=== PATIENT | female | born 1970 | race African-American/Black ===

== ENCOUNTER 2017-01-01 13:50 | Emergency (ER) | payer MEDICAID ==
[~2017-01-01] VITALS: Ht 170.2 cm; Wt 77.0 kg
[~2017-01-01 13:50] MED LIST: CA C1TAB95 PO; LEVO100 PO
[2017-01-01] MEDS ORDERED: OxyCODONE HCL/ACETAMINOPHEN 5-325 MG TABLET PO ONE (16:00)
[2017-01-01] MEDS ORDERED: IBUPROFEN 800 MG TABLET PO ONE (16:00)
[2017-01-01 16:22] VITALS: BP 121/70
== END 2017-01-01 16:25 | disposition home or self-care (01) ==
LOC: EMS 13:51
DX: J32.9 Chronic sinusitis, unspecified (principal); E03.9 Hypothyroidism, unspecified
CPT/HCPCS: 99283

== ENCOUNTER 2017-03-02 13:00 | Emergency (ER) | payer SELFPAY ==
[~2017-03-02] VITALS: Ht 170.2 cm; Wt 74.0 kg
[2017-03-02] MEDS ORDERED: HYDROCODONE/ACETAMINOPHEN 10-325 MG TABLET PO ONE (14:15)
[2017-03-02] MEDS ORDERED: IBUPROFEN 800 MG TABLET PO ONE (14:15)
[2017-03-02 16:23] VITALS: BP 113/73
== END 2017-03-02 16:25 | disposition home or self-care (01) ==
LOC: EMS 13:02
DX: S83.91XA Sprain of unspecified site of right knee, initial encounter (principal); S93.401A Sprain of unspecified ligament of right ankle, initial encounter; S63.91XA Sprain of unspecified part of right wrist and hand, initial encounter; S53.402A Unspecified sprain of left elbow, initial encounter; E03.9 Hypothyroidism, unspecified; V00.131A Fall from skateboard, initial encounter; Y93.51 Activity, roller skating (inline) and skateboarding; Y92.89 Other specified places as the place of occurrence of the external cause; Y99.8 Other external cause status
CPT/HCPCS: 99284

== ENCOUNTER 2018-02-26 12:29 | Emergency (ER) | payer MEDICAID ==
[~2018-02-26] VITALS: Ht 170.2 cm; Wt 79.1 kg
[2018-02-26 12:46] VITALS: BP 148/97
[2018-02-26] MEDS ORDERED: IBUPROFEN 600 MG TABLET PO ONE (13:00)
== END 2018-02-26 13:54 | disposition home or self-care (01) ==
LOC: EMS 12:30
DX: G56.01 Carpal tunnel syndrome, right upper limb (principal); E03.9 Hypothyroidism, unspecified; G89.29 Other chronic pain
CPT/HCPCS: 99284

== ENCOUNTER 2018-04-10 14:15 | Emergency (ER) | payer MEDICAID ==
[~2018-04-10] VITALS: Ht 170.2 cm; Wt 78.6 kg
[2018-04-10] MEDS ORDERED: KETOROLAC TROMETHAMINE 10 MG TABLET PO ONE (15:30)
[2018-04-10 17:39] VITALS: BP 125/73
== END 2018-04-10 17:41 | disposition home or self-care (01) ==
LOC: EMS 14:16
DX: L60.0 Ingrowing nail (principal); B35.1 Tinea unguium; E03.9 Hypothyroidism, unspecified
CPT/HCPCS: 84550; 99285

== ENCOUNTER 2018-05-01 08:37 | Emergency (ER) | payer SELFPAY ==
[~2018-05-01] VITALS: Ht 170.2 cm; Wt 77.0 kg
[2018-05-01] MEDS ORDERED: ONDANSETRON HCL 4 MG/2 ML VIAL IVP ONE (09:15)
[2018-05-01] MEDS ORDERED: KETOROLAC TROMETHAMINE 30 MG/ML VIAL IVP ONE (09:15)
[2018-05-01] MEDS ORDERED: MORPHINE SULFATE 4 MG/ML SYRINGE IVP ONE (09:15)
[2018-05-01 09:35] LABS: BASOPHILS % (AUTO) 0.6 % (0.0-2.0); EOSINOPHILS % (AUTO) 1.7 % (1.0-6.0); HEMATOCRIT 42.7 % (36-46); HEMOGLOBIN 14.7 g/dL (12.0-16.0); LYMPHOCYTES # (AUTO) 2.1 K/uL (1.0-4.8); LYMPHOCYTES % (AUTO) 22.3 % (22.0-44.0); MEAN CORPUSCULAR HEMOGLOBIN 31.2 pg (26.0-34.0); MEAN CORPUSCULAR HGB CONC 34.5 G/dL (31.0-37.0); MEAN CORPUSCULAR VOLUME 91 fL (80-100); MONOCYTES # (AUTO) 0.5 K/uL (0.1-1.0); MONOCYTES % (AUTO) 5.3 % (2.0-9.0); NEUTROPHILS # (AUTO) 6.7 K/uL (1.8-7.7); NEUTROPHILS % (AUTO) 70.1 % (40.0-70.0); PLATELET COUNT (AUTO) 174 K/uL (150-450); RED BLOOD CELL COUNT(AUTO) 4.72 MIL/uL (4.00-5.20)
[2018-05-01 09:39] LABS: ANION GAP 11 mmol/L (8-16); CALCIUM, TOTAL 8.6 mg/dL (8.8-10.5); CARBON DIOXIDE 23 mmol/L (22-29); CHLORIDE 104 mmol/L (98-107); CREATININE 0.84 mg/dL (0.60-1.30); GLOMERULAR FILTR. RATE CALC > 60 mL/min (>60); GLUCOSE,RANDOM 97 mg/dL (70-110); POTASSIUM 4.3 mmol/L (3.5-5.1); SODIUM SERUM 138 mmol/L (136-145); UREA NITROGEN, BLOOD 10 mg/dL (7-18)
[2018-05-01 09:46] LABS: ALANINE AMINOTRANSFERASE 40 U/L (12-78); ALBUMIN 3.9 g/dL (3.4-5.0); ALKALINE PHOSPHATASE 58 U/L (46-116); ASPARTATE AMINOTRANSFERASE 20 U/L (15-37); BILIRUBIN,TOTAL 0.3 mg/dL (0.1-1.0); TOTAL PROTEIN, SERUM 7.4 g/dL (6.4-8.2)
[2018-05-01 10:08] VITALS: BP 102/58
== END 2018-05-01 10:26 | disposition home or self-care (01) ==
LOC: EMS 08:38
DX: M94.0 Chondrocostal junction syndrome [Tietze] (principal); M54.2 Cervicalgia; G89.29 Other chronic pain; M54.9 Dorsalgia, unspecified; E03.9 Hypothyroidism, unspecified; Z79.899 Other long term (current) drug therapy
CPT/HCPCS: 36415; 71045; 80053; 84484; 85025; 93005; 96374; 96375; 99285; J1885; J2270; J2405

== ENCOUNTER 2018-09-23 08:58 | Emergency (ER) | payer SELFPAY ==
[~2018-09-23] VITALS: Ht 170.2 cm; Wt 83.2 kg
[2018-09-23] MEDS ORDERED: PHEN-779 PEG (09:05)
[2018-09-23 12:02] LABS: INFLUENZA TYPE A NEGATIVE FOR TYPE A (NEGATIVE); INFLUENZA TYPE B NEGATIVE FOR TYPE B (NEGATIVE)
[2018-09-23 13:17] VITALS: BP 114/78
== END 2018-09-23 13:18 | disposition home or self-care (01) ==
LOC: EMS 09:00
DX: J06.9 Acute upper respiratory infection, unspecified (principal); R03.0 Elevated blood-pressure reading, without diagnosis of hypertension; E03.9 Hypothyroidism, unspecified; F17.210 Nicotine dependence, cigarettes, uncomplicated
CPT/HCPCS: 87804

== ENCOUNTER 2018-12-04 04:29 | Emergency (ER) | payer SELFPAY ==
[~2018-12-04] VITALS: Ht 167.6 cm; Wt 83.2 kg
[~2018-12-04 04:29] MED LIST changes: +PHEN-779 PEG
[2018-12-04 05:45] LABS: BASOPHILS % (AUTO) 0.7 % (0.0-2.0); EOSINOPHILS % (AUTO) 1.8 % (1.0-6.0); HEMATOCRIT 40.8 % (36-46); HEMOGLOBIN 14.1 g/dL (12.0-16.0); LYMPHOCYTES # (AUTO) 2.6 K/uL (1.0-4.8); LYMPHOCYTES % (AUTO) 27.9 % (22.0-44.0); MEAN CORPUSCULAR HEMOGLOBIN 31.7 pg (26.0-34.0); MEAN CORPUSCULAR HGB CONC 34.5 G/dL (31.0-37.0); MEAN CORPUSCULAR VOLUME 92 fL (80-100); MONOCYTES # (AUTO) 0.6 K/uL (0.1-1.0); MONOCYTES % (AUTO) 6.9 % (2.0-9.0); NEUTROPHILS # (AUTO) 5.7 K/uL (1.8-7.7); NEUTROPHILS % (AUTO) 62.7 % (40.0-70.0); PLATELET COUNT (AUTO) 166 K/uL (150-450); RED BLOOD CELL COUNT(AUTO) 4.44 MIL/uL (4.00-5.20); RED CELL DISTRIBUTION WIDTH 14.1 % (11.5-14.5)
[2018-12-04 05:57] LABS: ANION GAP 9 mmol/L (8-16); CALCIUM, TOTAL 8.7 mg/dL (8.8-10.5); CARBON DIOXIDE 26 mmol/L (22-29); CHLORIDE 105 mmol/L (98-107); CREATININE 0.72 mg/dL (0.60-1.30); GLOMERULAR FILTR. RATE CALC > 60 mL/min (>60); GLUCOSE,RANDOM 106 mg/dL (70-110); POTASSIUM 3.9 mmol/L (3.5-5.1); SODIUM SERUM 140 mmol/L (136-145); UREA NITROGEN, BLOOD 11 mg/dL (7-18)
[2018-12-04 06:02] LABS: ALANINE AMINOTRANSFERASE 33 U/L (12-78); ALBUMIN 3.6 g/dL (3.4-5.0); ALKALINE PHOSPHATASE 61 U/L (46-116); ASPARTATE AMINOTRANSFERASE 8 U/L (15-37); BILIRUBIN,TOTAL 0.2 mg/dL (0.1-1.0); LIPASE 177 U/L (73-393); TOTAL PROTEIN, SERUM 6.7 g/dL (6.4-8.2)
[2018-12-04] MEDS ORDERED: MAG HYDROX/AL HYDROX/SIMETH ES 30 ML SUSPENSION UDCUP PO ONE (06:30)
[2018-12-04] MEDS ORDERED: FAMOTIDINE 20 MG TABLET PO ONE (06:30)
[2018-12-04 10:04] VITALS: BP 118/76
== END 2018-12-04 10:06 | disposition home or self-care (01) ==
LOC: EMS 04:29
DX: K21.0 Gastro-esophageal reflux disease with esophagitis (principal); K27.9 Peptic ulcer, site unspecified, unspecified as acute or chronic, without hemorrhage or perforation; E03.9 Hypothyroidism, unspecified; F17.210 Nicotine dependence, cigarettes, uncomplicated; Z79.899 Other long term (current) drug therapy
CPT/HCPCS: 93005

== ENCOUNTER 2019-01-09 10:56 | Emergency (ER) | payer MEDICAID ==
[~2019-01-09] VITALS: Ht 170.2 cm; Wt 81.8 kg
[~2019-01-09 10:56] MED LIST changes: -PHEN-779 PEG
[2019-01-09 11:13] VITALS: BP 128/74
[2019-01-09] MEDS ORDERED: CYCLOBENZAPRINE HCL 10 MG TABLET PO ONE (15:00)
[2019-01-09] MEDS ORDERED: HYDROCODONE/ACETAMINOPHEN 5-325 MG TABLET PO ONE (15:00)
[2019-01-09] MEDS ORDERED: KETOROLAC TROMETHAMINE 30 MG/ML VIAL IM ONE (15:00)
[2019-01-09] MEDS ORDERED: LIDOCAINE 5% TRANSDERMAL PATCH TD ONE (15:00)
[2019-01-09 15:14] LABS: APPEARANCE,URINE CLOUDY (CLEAR); BILIRUBIN,URINE NEGATIVE (NEGATIVE); GLUCOSE, URINE (UA) NEGATIVE (NEGATIVE); KETONES,URINE NEGATIVE (NEGATIVE); LEUKOCYTE ESTERASE ,URINE LARGE (NEGATIVE); NITRATE,URINE NEGATIVE (NEGATIVE); OCCULT BLOOD,URINE LARGE (NEGATIVE); PH,URINE 5.5 (5.0-8.0); PROTEIN,URINE NEGATIVE (NEGATIVE); UROBILINOGEN,URINE 0.2 mg/dL (<=1.0)
[2019-01-09 15:35] LABS: BACTERIA,URINE Few /HPF (None Seen); RBC,URINE 26-50 /HPF (0-2); SQUAMOUS EPITHELIAL CELL,UR Many /LPF (None Seen); WBC,URINE 51-100 /HPF (0-5)
[2019-01-09] MEDS ORDERED: MetroNIDAZOLE 500 MG TABLET PO ONE (16:15)
[2019-01-09] MEDS ORDERED: CefTRIAXone SODIUM 1 GM/VIAL IM ONE (16:15)
[2019-01-09] MEDS ORDERED: LIDOCAINE/PF 1% 2 ML VIAL IM ONE (16:15)
== END 2019-01-09 17:39 | disposition home or self-care (01) ==
LOC: EMS 10:57
DX: N39.0 Urinary tract infection, site not specified (principal); A59.9 Trichomoniasis, unspecified; G89.29 Other chronic pain; E03.9 Hypothyroidism, unspecified; F17.210 Nicotine dependence, cigarettes, uncomplicated
CPT/HCPCS: 81001; 81002; 81025; 87086; 96372; 99284; 99406; J0696; J1885; J3490

== ENCOUNTER 2019-01-12 00:57 | Emergency (ER) | payer MEDICAID ==
[~2019-01-12] VITALS: Ht 170.2 cm; Wt 81.8 kg
[2019-01-12] MEDS ORDERED: CYCL10 PO (01:25)
[2019-01-12] MEDS ORDERED: LEVO500 PO (01:25)
[2019-01-12 02:37] LABS: BASOPHILS % (AUTO) 0.5 % (0.0-2.0); EOSINOPHILS % (AUTO) 2.3 % (1.0-6.0); HEMATOCRIT 38.3 % (36-46); HEMOGLOBIN 13.1 g/dL (12.0-16.0); LYMPHOCYTES # (AUTO) 2.1 K/uL (1.0-4.8); LYMPHOCYTES % (AUTO) 24.5 % (22.0-44.0); MEAN CORPUSCULAR HEMOGLOBIN 31.2 pg (26.0-34.0); MEAN CORPUSCULAR HGB CONC 34.2 G/dL (31.0-37.0); MEAN CORPUSCULAR VOLUME 91 fL (80-100); MONOCYTES # (AUTO) 0.6 K/uL (0.1-1.0); MONOCYTES % (AUTO) 6.4 % (2.0-9.0); NEUTROPHILS # (AUTO) 5.7 K/uL (1.8-7.7); NEUTROPHILS % (AUTO) 66.3 % (40.0-70.0); PLATELET COUNT (AUTO) 172 K/uL (150-450)
[2019-01-12 02:46] LABS: AMPHET/METH SCREEN,URINE NEGATIVE (NEGATIVE); BARBITURATE SCREEN, URINE NEGATIVE (NEGATIVE); BENZODIAZEPINES SCREEN,URINE NEGATIVE (NEGATIVE); CANNABINOID SCREEN,URINE NEGATIVE (NEGATIVE); COCAINE SCREEN,URINE NEGATIVE (NEGATIVE); METHADONE SCREEN, URINE NEGATIVE (NEGATIVE); OPIATE SCREEN,URINE POSITIVE (NEGATIVE)
[2019-01-12 02:47] LABS: ANION GAP 7 mmol/L (8-16); CALCIUM, TOTAL 8.7 mg/dL (8.8-10.5); CARBON DIOXIDE 26 mmol/L (22-29); CHLORIDE 104 mmol/L (98-107); CREATININE 0.95 mg/dL (0.60-1.30); GLOMERULAR FILTR. RATE CALC > 60 mL/min (>60); GLUCOSE,RANDOM 118 mg/dL (70-110); POTASSIUM 4.1 mmol/L (3.5-5.1); SODIUM SERUM 137 mmol/L (136-145); UREA NITROGEN, BLOOD 11 mg/dL (7-18)
[2019-01-12 02:48] LABS: PHENCYCLIDINE SCREEN,URINE NEGATIVE (NEGATIVE)
[2019-01-12 02:59] LABS: ALANINE AMINOTRANSFERASE 24 U/L (12-78); ALBUMIN 3.6 g/dL (3.4-5.0); ALKALINE PHOSPHATASE 58 U/L (46-116); ASPARTATE AMINOTRANSFERASE 6 U/L (15-37); BILIRUBIN,TOTAL 0.1 mg/dL (0.1-1.0); HCG,QUANTITATIVE < 1 mIU/mL (0-6); TOTAL PROTEIN, SERUM 6.9 g/dL (6.4-8.2)
[2019-01-12 04:59] VITALS: BP 127/71
== END 2019-01-12 05:01 | disposition home or self-care (01) ==
LOC: EMS 00:57
DX: F41.9 Anxiety disorder, unspecified (principal); D64.9 Anemia, unspecified; E03.9 Hypothyroidism, unspecified; F17.210 Nicotine dependence, cigarettes, uncomplicated; Z79.899 Other long term (current) drug therapy
CPT/HCPCS: 36415; 80053; 80307; 84484; 84702; 85025; 93005; 99284; 99406; G0480

== ENCOUNTER 2019-05-07 23:29 | Emergency (ER) | payer MEDICAID, OTHER ==
[~2019-05-07] VITALS: Ht 170.2 cm; Wt 72.7 kg
[~2019-05-07 23:29] MED LIST changes: +CYCL10 PO; +LEVO500 PO
[2019-05-08] MEDS ORDERED: LIDOCAINE 5% TRANSDERMAL PATCH TD ONE (02:15)
[2019-05-08] MEDS ORDERED: KETOROLAC TROMETHAMINE 30 MG/ML VIAL IM ONE (03:00)
[2019-05-08 04:40] VITALS: BP 137/93
== END 2019-05-08 04:49 | disposition home or self-care (01) ==
LOC: EMS 23:30
DX: N39.0 Urinary tract infection, site not specified (principal); E03.9 Hypothyroidism, unspecified; G89.29 Other chronic pain; F17.210 Nicotine dependence, cigarettes, uncomplicated
CPT/HCPCS: 81002; 81025; 96372; 99284; J1885

== ENCOUNTER 2019-06-20 01:00 | Emergency (ER) | payer OTHER ==
[~2019-06-20] VITALS: Ht 170.2 cm; Wt 75.0 kg
[~2019-06-20 01:00] MED LIST changes: -CYCL10 PO; -LEVO500 PO
[2019-06-20 01:04] VITALS: BP 128/85
== END 2019-06-20 05:12 | disposition left against medical advice (07) ==
LOC: EMS 01:02
DX: S81.812A Laceration without foreign body, left lower leg, initial encounter (principal); E03.9 Hypothyroidism, unspecified; F17.210 Nicotine dependence, cigarettes, uncomplicated; G89.29 Other chronic pain; Z53.21 Procedure and treatment not carried out due to patient leaving prior to being seen by health care provider; W45.8XXA Other foreign body or object entering through skin, initial encounter; Y93.89 Activity, other specified; Y92.89 Other specified places as the place of occurrence of the external cause; Y99.8 Other external cause status

== ENCOUNTER 2019-07-08 09:19 | Emergency (ER) | payer OTHER ==
[~2019-07-08] VITALS: Ht 171.4 cm; Wt 75.0 kg
[2019-07-08] MEDS: HYDROCODONE/ACETAMINOPHEN 5-325 MG TABLET PO ONE (10:12)
[2019-07-08] MEDS: KETOROLAC TROMETHAMINE 60 MG/2 ML VIAL IM ONE (10:13)
[2019-07-08 11:34] VITALS: BP 120/74
== END 2019-07-08 11:55 | disposition home or self-care (01) ==
LOC: EMS 09:20
DX: S93.601A Unspecified sprain of right foot, initial encounter (principal); F17.210 Nicotine dependence, cigarettes, uncomplicated; E03.9 Hypothyroidism, unspecified; G89.29 Other chronic pain; X58.XXXA Exposure to other specified factors, initial encounter; Y93.89 Activity, other specified; Y92.89 Other specified places as the place of occurrence of the external cause; Y99.8 Other external cause status
CPT/HCPCS: 73630; 96372; 99283; 99406; J1885

== ENCOUNTER 2020-01-05 15:02 | Emergency (ER) | payer MEDICAID, OTHER ==
[~2020-01-05] VITALS: Ht 170.2 cm; Wt 86.4 kg
[2020-01-05] MEDS ORDERED: ALBUTEROL SULFATE HFA 90 MCG/PUFF 8 GM INHALER IH ONE (16:15)
[2020-01-05 17:13] VITALS: BP 134/81
== END 2020-01-05 17:21 | disposition home or self-care (01) ==
LOC: EMS 15:03
DX: J40 Bronchitis, not specified as acute or chronic (principal); R03.0 Elevated blood-pressure reading, without diagnosis of hypertension; E03.9 Hypothyroidism, unspecified; G89.29 Other chronic pain; F17.210 Nicotine dependence, cigarettes, uncomplicated; Z98.890 Other specified postprocedural states; Z79.899 Other long term (current) drug therapy
CPT/HCPCS: 94640; J3535

== ENCOUNTER 2020-08-30 23:55 | Emergency (ER) | payer SELFPAY ==
[~2020-08-30] VITALS: Ht 170.2 cm; Wt 86.4 kg
[2020-08-31] MEDS ORDERED: KETOROLAC TROMETHAMINE 60 MG/2 ML VIAL IM ONE (02:30)
[2020-08-31] MEDS ORDERED: METHOCARBAMOL 500 MG TABLET PO ONE (02:30)
[2020-08-31 03:10] LABS: BASOPHILS % (AUTO) 0.5 % (0.0-2.0); EOSINOPHILS % (AUTO) 2.6 % (1.0-6.0); HEMATOCRIT 39.9 % (36-46); HEMOGLOBIN 13.6 g/dL (12.0-16.0); LYMPHOCYTES % (AUTO) 34.5 % (22.0-44.0); MEAN CORPUSCULAR HEMOGLOBIN 31.3 pg (26.0-34.0); MEAN CORPUSCULAR VOLUME 92 fL (80-100); MONOCYTES # (AUTO) 0.6 K/uL (0.1-1.0); MONOCYTES % (AUTO) 6.8 % (2.0-9.0); NEUTROPHILS # (AUTO) 4.9 K/uL (1.8-7.7); NEUTROPHILS % (AUTO) 55.6 % (40.0-70.0); PLATELET COUNT (AUTO) 191 K/uL (150-450); RED BLOOD CELL COUNT(AUTO) 4.33 MIL/uL (4.00-5.20); RED CELL DISTRIBUTION WIDTH 14.2 % (11.5-14.5)
[2020-08-31 03:24] LABS: ANION GAP 11 mmol/L (8-16); CALCIUM, TOTAL 9.3 mg/dL (8.8-10.5); CARBON DIOXIDE 24 mmol/L (22-29); CHLORIDE 104 mmol/L (98-107); CREATININE 0.93 mg/dL (0.60-1.30); GLOMERULAR FILTR. RATE CALC > 60 mL/min (>60); GLUCOSE,RANDOM 109 mg/dL (70-110); POTASSIUM 3.9 mmol/L (3.5-5.1); SODIUM SERUM 139 mmol/L (136-145); UREA NITROGEN, BLOOD 11 mg/dL (7-18)
[2020-08-31 03:31] LABS: ALANINE AMINOTRANSFERASE 44 U/L (12-78); ALBUMIN 3.9 g/dL (3.4-5.0); ALKALINE PHOSPHATASE 65 U/L (46-116); ASPARTATE AMINOTRANSFERASE 10 U/L (15-37); BILIRUBIN,TOTAL 0.1 mg/dL (0.1-1.0); LIPASE 163 U/L (73-393); TOTAL PROTEIN, SERUM 6.6 g/dL (6.4-8.2)
[2020-08-31 04:04] VITALS: BP 114/70
== END 2020-08-31 04:06 | disposition home or self-care (01) ==
LOC: EMS 23:55
DX: R07.89 Other chest pain (principal); F17.210 Nicotine dependence, cigarettes, uncomplicated; E03.9 Hypothyroidism, unspecified
CPT/HCPCS: 36415; 71100; 80053; 83690; 84484; 85025; 93005; 96372; 99285; J1885

== ENCOUNTER 2021-02-21 09:05 | Emergency (ER) | payer MEDICAID ==
[~2021-02-21] VITALS: Ht 170.2 cm; Wt 84.1 kg
[2021-02-21] MEDS ORDERED: KETOROLAC TROMETHAMINE 60 MG/2 ML VIAL IM ONE (11:00)
[2021-02-21] MEDS ORDERED: LIDOCAINE 5% TRANSDERMAL PATCH TD ONE (11:00)
[2021-02-21 11:44] VITALS: BP 143/77
== END 2021-02-21 11:49 | disposition home or self-care (01) ==
LOC: EMS 09:09
DX: G89.29 Other chronic pain (principal); M54.42 Lumbago with sciatica, left side; E03.9 Hypothyroidism, unspecified; F17.210 Nicotine dependence, cigarettes, uncomplicated; Z79.899 Other long term (current) drug therapy
CPT/HCPCS: 96372; 99283; J1885

== ENCOUNTER 2021-06-19 00:32 | Emergency (ER) | payer MEDICAID ==
[~2021-06-19] VITALS: Ht 170.2 cm; Wt 84.5 kg
[2021-06-19 00:48] VITALS: BP 113/71
== END 2021-06-19 04:25 | disposition left against medical advice (07) ==
LOC: EMS 00:35
DX: M79.673 Pain in unspecified foot (principal); Z53.21 Procedure and treatment not carried out due to patient leaving prior to being seen by health care provider

== ENCOUNTER 2021-07-07 16:09 | Emergency (ER) | payer MEDICAID ==
[~2021-07-07] VITALS: Ht 170.2 cm; Wt 86.4 kg
[2021-07-07 16:11] VITALS: BP 136/87
[2021-07-07] MEDS ORDERED: CEPHALEXIN MONOHYDRATE 500 MG CAPSULE PO ONE (17:30)
[2021-07-07] MEDS ORDERED: HYDROCODONE/ACETAMINOPHEN 5-325 MG TABLET PO ONE (17:30)
== END 2021-07-07 17:37 | disposition home or self-care (01) ==
LOC: EMS 16:09
DX: L03.031 Cellulitis of right toe (principal); F17.210 Nicotine dependence, cigarettes, uncomplicated; G89.29 Other chronic pain
CPT/HCPCS: 99283

== ENCOUNTER 2021-07-28 01:20 | Emergency (ER) | payer MEDICAID ==
[~2021-07-28] VITALS: Ht 170.2 cm; Wt 84.5 kg
[2021-07-28] MEDS ORDERED: ACETAMINOPHEN 325 MG TABLET PO ONE (01:45)
[2021-07-28] MEDS ORDERED: IBUPROFEN 400 MG TABLET PO ONE (02:00)
[2021-07-28] MEDS ORDERED: LIDOCAINE 1% 10 ML VIAL ID ONE (02:00)
[2021-07-28 02:31] VITALS: BP 135/74
== END 2021-07-28 02:30 | disposition home or self-care (01) ==
LOC: EMS 01:22
DX: S60.012A Contusion of left thumb without damage to nail, initial encounter (principal); W23.0XXA Caught, crushed, jammed, or pinched between moving objects, initial encounter; Y93.89 Activity, other specified; Y92.89 Other specified places as the place of occurrence of the external cause; Y99.8 Other external cause status
CPT/HCPCS: 11740; 73130; 99284; J3490

== ENCOUNTER 2021-10-13 00:18 | Emergency (ER) | payer MEDICAID ==
[~2021-10-13] VITALS: Ht 170.2 cm; Wt 84.1 kg
[2021-10-13 03:06] VITALS: BP 129/68
== END 2021-10-13 04:24 | disposition home or self-care (01) ==
LOC: EMS 00:21
DX: G89.29 Other chronic pain (principal); M79.645 Pain in left finger(s); E03.9 Hypothyroidism, unspecified; F17.210 Nicotine dependence, cigarettes, uncomplicated; Z79.899 Other long term (current) drug therapy
CPT/HCPCS: 99283

== ENCOUNTER 2021-11-08 06:18 | Emergency (ER) | payer MEDICAID ==
[~2021-11-08] VITALS: Ht 170.2 cm; Wt 81.8 kg
[2021-11-08 06:55] LABS: BASOPHILS % (AUTO) 0.6 % (0.0-2.0); EOSINOPHILS % (AUTO) 2.6 % (1.0-6.0); HEMOGLOBIN 14.3 g/dL (12.0-16.0); LYMPHOCYTES # (AUTO) 3.2 K/uL (1.0-4.8); LYMPHOCYTES % (AUTO) 36.2 % (22.0-44.0); MEAN CORPUSCULAR HEMOGLOBIN 31.4 pg (26.0-34.0); MEAN CORPUSCULAR HGB CONC 34.8 G/dL (31.0-37.0); MEAN CORPUSCULAR VOLUME 90 fL (80-100); MONOCYTES # (AUTO) 0.7 K/uL (0.1-1.0); MONOCYTES % (AUTO) 7.9 % (2.0-9.0); NEUTROPHILS # (AUTO) 4.7 K/uL (1.8-7.7); NEUTROPHILS % (AUTO) 52.7 % (40.0-70.0); PLATELET COUNT (AUTO) 180 K/uL (150-450); RED BLOOD CELL COUNT(AUTO) 4.55 MIL/uL (4.00-5.20); RED CELL DISTRIBUTION WIDTH 14.1 % (11.5-14.5)
[2021-11-08] MEDS ORDERED: PB/HYOSCY/ATR/SCOP/LIDO/MAALOX 55 ML BOTTLE PO ONE (07:00)
[2021-11-08 07:03] LABS: ANION GAP 8 mmol/L (8-16); CALCIUM, TOTAL 9.5 mg/dL (8.8-10.5); CARBON DIOXIDE 25 mmol/L (22-29); CHLORIDE 106 mmol/L (98-107); CREATININE 0.82 mg/dL (0.60-1.30); GLOMERULAR FILTR. RATE CALC > 60 mL/min (>60); GLUCOSE,RANDOM 122 mg/dL (70-110); POTASSIUM 4.1 mmol/L (3.5-5.1); SODIUM SERUM 139 mmol/L (136-145); UREA NITROGEN, BLOOD 11 mg/dL (7-18)
[2021-11-08 07:09] LABS: ALANINE AMINOTRANSFERASE 47 U/L (12-78); ALBUMIN 3.8 g/dL (3.4-5.0); ALKALINE PHOSPHATASE 61 U/L (46-116); ASPARTATE AMINOTRANSFERASE 19 U/L (15-37); BILIRUBIN,TOTAL 0.2 mg/dL (0.1-1.0); TOTAL PROTEIN, SERUM 7.2 g/dL (6.4-8.2)
[2021-11-08 12:45] VITALS: BP 125/80
== END 2021-11-08 13:11 | disposition home or self-care (01) ==
LOC: EMS 06:20
DX: R07.9 Chest pain, unspecified (principal); K21.9 Gastro-esophageal reflux disease without esophagitis; F17.210 Nicotine dependence, cigarettes, uncomplicated; E03.9 Hypothyroidism, unspecified; Z90.89 Acquired absence of other organs
CPT/HCPCS: 71045; 80053; 84484; 85025; 93005; 99285; 36415-L1; 36415-TC

== ENCOUNTER 2021-11-23 09:06 | Emergency (ER) | payer MEDICAID ==
[~2021-11-23] VITALS: Ht 170.2 cm; Wt 84.1 kg
[2021-11-23 09:14] VITALS: BP 143/88
[2021-11-23] MEDS ORDERED: ACETAMINOPHEN 500 MG TABLET PO ONE (10:00)
[2021-11-23 11:15] LABS: COVID AG,FIA SOURCE NASOPHARYNGEAL
== END 2021-11-23 10:52 | disposition home or self-care (01) ==
LOC: EMS 09:09
DX: U07.1 COVID-19 (principal); E03.9 Hypothyroidism, unspecified; F17.210 Nicotine dependence, cigarettes, uncomplicated; Z79.899 Other long term (current) drug therapy
CPT/HCPCS: 87426; 99283; C9803; U0003

== ENCOUNTER 2022-01-01 02:01 | Emergency (ER) | payer SELFPAY ==
[~2022-01-01] VITALS: Ht 170.2 cm; Wt 81.0 kg
[2022-01-01] MEDS ORDERED: IBUPROFEN 600 MG TABLET PO ONE (02:30)
[2022-01-01] MEDS ORDERED: ACETAMINOPHEN/CODEINE 300-30 MG TABLET PO ONE (02:30)
[2022-01-01] MEDS ORDERED: HYDR-4723 PO (03:01)
[2022-01-01] MEDS ORDERED: IBUP-1554 PO (03:01)
[2022-01-01 03:15] VITALS: BP 141/82
== END 2022-01-01 03:18 | disposition home or self-care (01) ==
LOC: EMS 02:03
DX: S63.501A Unspecified sprain of right wrist, initial encounter (principal); E03.9 Hypothyroidism, unspecified; Z79.899 Other long term (current) drug therapy; W18.39XA Other fall on same level, initial encounter; Y93.89 Activity, other specified; Y92.89 Other specified places as the place of occurrence of the external cause; Y99.8 Other external cause status
CPT/HCPCS: 29280; 99283

== ENCOUNTER 2022-02-11 22:49 | Emergency (ER) | payer SELFPAY ==
[~2022-02-11] VITALS: Ht 170.2 cm; Wt 86.4 kg
[~2022-02-11 22:49] MED LIST changes: +HYDR-4723 PO; +IBUP-1554 PO
[2022-02-12 00:35] LABS: APPEARANCE,URINE CLEAR (CLEAR); BILIRUBIN,URINE NEGATIVE (NEGATIVE); GLUCOSE, URINE (UA) NEGATIVE (NEGATIVE); KETONES,URINE NEGATIVE (NEGATIVE); LEUKOCYTE ESTERASE ,URINE MODERATE (NEGATIVE); NITRATE,URINE NEGATIVE (NEGATIVE); OCCULT BLOOD,URINE LARGE (NEGATIVE); PH,URINE 6.5 (5.0-8.0); PROTEIN,URINE TRACE mg/dL (NEGATIVE); SPECIFIC GRAVITIY, URINE 1.024 (1.003-1.030); UROBILINOGEN,URINE <=1.0 mg/dL (<=1.0)
[2022-02-12 00:53] LABS: BACTERIA,URINE Few /HPF (None Seen)
[2022-02-12 00:54] LABS: SQUAMOUS EPITHELIAL CELL,UR Few /LPF (None Seen)
[2022-02-12] MEDS ORDERED: TraMADol HCL 50 MG TABLET PO ONE (01:15)
[2022-02-12] MEDS ORDERED: LIDOCAINE 5% TRANSDERMAL PATCH TD ONE (01:15)
[2022-02-12] MEDS ORDERED: CEPH-558 PO (01:44)
[2022-02-12] MEDS ORDERED: METR500 PO (01:44)
[2022-02-12 02:17] VITALS: BP 130/75
== END 2022-02-12 02:19 | disposition home or self-care (01) ==
LOC: EMS 22:49
DX: G89.29 Other chronic pain (principal); M54.50 Low back pain, unspecified; N39.0 Urinary tract infection, site not specified; A59.9 Trichomoniasis, unspecified; E03.9 Hypothyroidism, unspecified; F17.210 Nicotine dependence, cigarettes, uncomplicated; Z79.899 Other long term (current) drug therapy
CPT/HCPCS: 81001; 87086; 99283

== ENCOUNTER 2022-03-27 04:00 | Emergency (ER) | payer SELFPAY ==
[~2022-03-27] VITALS: Ht 170.2 cm; Wt 86.4 kg
[~2022-03-27 04:00] MED LIST changes: +CEPH-558 PO; +METR500 PO
[2022-03-27 04:48] LABS: BASOPHILS % (AUTO) 0.3 % (0.0-2.0); EOSINOPHILS % (AUTO) 0.9 % (1.0-6.0); HEMATOCRIT 40.3 % (36-46); HEMOGLOBIN 13.8 g/dL (12.0-16.0); LYMPHOCYTES % (AUTO) 15.2 % (22.0-44.0); MEAN CORPUSCULAR HEMOGLOBIN 31.1 pg (26.0-34.0); MEAN CORPUSCULAR HGB CONC 34.2 G/dL (31.0-37.0); MEAN CORPUSCULAR VOLUME 91 fL (80-100); MONOCYTES # (AUTO) 0.9 K/uL (0.1-1.0); MONOCYTES % (AUTO) 6.7 % (2.0-9.0); NEUTROPHILS # (AUTO) 10.1 K/uL (1.8-7.7); NEUTROPHILS % (AUTO) 76.9 % (40.0-70.0); PLATELET COUNT (AUTO) 171 K/uL (150-450); RED BLOOD CELL COUNT(AUTO) 4.43 MIL/uL (4.00-5.20); RED CELL DISTRIBUTION WIDTH 14.2 % (11.5-14.5)
[2022-03-27 04:54] LABS: ANION GAP 11 mmol/L (8-16); CALCIUM, TOTAL 8.7 mg/dL (8.8-10.5); CARBON DIOXIDE 24 mmol/L (22-29); CHLORIDE 103 mmol/L (98-107); CREATININE 0.94 mg/dL (0.60-1.30); GLOMERULAR FILTR. RATE CALC > 60 mL/min (>60); GLUCOSE,RANDOM 136 mg/dL (70-110); POTASSIUM 3.9 mmol/L (3.5-5.1); SODIUM SERUM 138 mmol/L (136-145); UREA NITROGEN, BLOOD 12 mg/dL (7-18)
[2022-03-27 05:14] LABS: ALANINE AMINOTRANSFERASE 52 U/L (12-78); ALBUMIN 4.2 g/dL (3.4-5.0); ALKALINE PHOSPHATASE 63 U/L (46-116); AMYLASE 93 U/L (25-115); ASPARTATE AMINOTRANSFERASE 20 U/L (15-37); BILIRUBIN,TOTAL 0.3 mg/dL (0.1-1.0); HCG,QUANTITATIVE < 1 mIU/mL (0-6); LIPASE 125 U/L (73-393); TOTAL PROTEIN, SERUM 7.5 g/dL (6.4-8.2)
[2022-03-27] MEDS ORDERED: PB/HYOSCY/ATR/SCOP/LIDO/MAALOX 55 ML BOTTLE PO ONE (06:15)
[2022-03-27 07:00] LABS: APPEARANCE,URINE CLEAR (CLEAR); BILIRUBIN,URINE NEGATIVE (NEGATIVE); GLUCOSE, URINE (UA) NEGATIVE (NEGATIVE); KETONES,URINE NEGATIVE (NEGATIVE); LEUKOCYTE ESTERASE ,URINE NEGATIVE (NEGATIVE); NITRATE,URINE NEGATIVE (NEGATIVE); PH,URINE 5.5 (5.0-8.0); PROTEIN,URINE NEGATIVE (NEGATIVE); SPECIFIC GRAVITIY, URINE 1.007 (1.003-1.030); UROBILINOGEN,URINE <=1.0 mg/dL (<=1.0)
[2022-03-27 07:19] LABS: OCCULT BLOOD,URINE SMALL (NEGATIVE)
[2022-03-27 07:20] LABS: BACTERIA,URINE None Seen /HPF (None Seen); SQUAMOUS EPITHELIAL CELL,UR Rare /LPF (None Seen); WBC,URINE None Seen /HPF (0-5)
[2022-03-27 09:04] VITALS: BP 110/68
[2022-03-27] MEDS ORDERED: OMEP20 PO (09:07)
== END 2022-03-27 09:27 | disposition home or self-care (01) ==
LOC: EMS 04:00
DX: K29.70 Gastritis, unspecified, without bleeding (principal); F10.20 Alcohol dependence, uncomplicated; F17.210 Nicotine dependence, cigarettes, uncomplicated; G89.29 Other chronic pain; M54.9 Dorsalgia, unspecified; Z90.89 Acquired absence of other organs; Z98.890 Other specified postprocedural states
CPT/HCPCS: 80053; 81001; 82150; 83690; 84484; 84702; 85025; 93005; 99284

== ENCOUNTER 2022-06-28 16:13 | Emergency (ER) | payer SELFPAY ==
[~2022-06-28] VITALS: Ht 170.2 cm; Wt 86.4 kg
[~2022-06-28 16:13] MED LIST changes: -CEPH-558 PO; -HYDR-4723 PO; -IBUP-1554 PO; -METR500 PO; +OMEP20 PO
[2022-06-28 20:17] VITALS: BP 133/77
== END 2022-06-28 20:46 | disposition home or self-care (01) ==
LOC: EMS 16:15
DX: M25.561 Pain in right knee (principal); M25.562 Pain in left knee; M25.572 Pain in left ankle and joints of left foot; E03.9 Hypothyroidism, unspecified; F17.210 Nicotine dependence, cigarettes, uncomplicated; Z79.899 Other long term (current) drug therapy
CPT/HCPCS: 99284; 73562-TC; 73610-TC; Z7502

== ENCOUNTER 2023-06-16 10:57 | Emergency (ER) | payer OTHER ==
[~2023-06-16] VITALS: Ht 170.2 cm; Wt 75.0 kg
[~2023-06-16 10:57] MED LIST changes: +ATOR40TA71 PO; +FAMO20 PO; +HYDR-4396 PO; +METF-446 PO; -OMEP20 PO
[2023-06-16 11:07] VITALS: TEMP 97.9
[2023-06-16] MEDS ORDERED: METF-1211 PO (11:10)
[2023-06-16] MEDS ORDERED: AMOX1TAB16 PO (13:08)
[2023-06-16 13:49] VITALS: BP 125/78; PULSE 84; RESP 18
== END 2023-06-16 13:51 | disposition home or self-care (01) ==
LOC: EMS 10:58
DX: L60.0 Ingrowing nail (principal); F41.9 Anxiety disorder, unspecified; E11.9 Type 2 diabetes mellitus without complications; E78.00 Pure hypercholesterolemia, unspecified; E03.9 Hypothyroidism, unspecified; G89.29 Other chronic pain; M54.9 Dorsalgia, unspecified; F17.210 Nicotine dependence, cigarettes, uncomplicated; Z98.890 Other specified postprocedural states
CPT/HCPCS: 82962; 99283

== ENCOUNTER 2023-08-08 13:32 | Emergency (ER) | payer OTHER ==
[~2023-08-08] VITALS: Ht 170.2 cm; Wt 80.0 kg
[~2023-08-08 13:32] MED LIST changes: +AMOX1TAB16 PO; -ATOR40TA71 PO; -CA C1TAB95 PO; -FAMO20 PO; -HYDR-4396 PO; +METF-1211 PO; -METF-446 PO
[2023-08-08 13:35] VITALS: TEMP 99.3
[2023-08-08] MEDS ORDERED: ATOR20TA PO (13:41)
[2023-08-08 14:21] LABS: COVID AG,FIA SOURCE NASAL SWAB
[2023-08-08 14:41] LABS: SARS-COV2 (COVID) ANTIGEN,FIA Negative (Negative)
[2023-08-08 14:44] LABS: INFLUENZA TYPE A NEGATIVE FOR TYPE A (NEGATIVE); INFLUENZA TYPE B NEGATIVE FOR TYPE B (NEGATIVE)
[2023-08-08] MEDS ORDERED: CYCL10TA16 PO (16:40)
[2023-08-08] MEDS ORDERED: CALC-26 PO (16:40)
[2023-08-08] MEDS ORDERED: TERB250T90 PO (16:40)
[2023-08-08] MEDS ORDERED: ACETAMINOPHEN 500 MG TABLET PO ONE (16:45)
[2023-08-08] MEDS ORDERED: AMOX TR/POT CLAV 875 MG/125 MG TABLET PO ONE (16:45)
[2023-08-08] MEDS ORDERED: BENZONATATE 100 MG CAPSULE PO ONE (16:45)
[2023-08-08] MEDS ORDERED: BENZ-227 PO (16:59)
[2023-08-08] MEDS ORDERED: AMOX1TAB16 PO (16:59)
[2023-08-08 17:03] VITALS: BP 118/86; PULSE 66; RESP 16
== END 2023-08-08 17:59 | disposition home or self-care (01) ==
LOC: EMS 13:35
DX: J03.90 Acute tonsillitis, unspecified (principal); R05.9 Cough, unspecified; F41.9 Anxiety disorder, unspecified; E11.9 Type 2 diabetes mellitus without complications; E78.00 Pure hypercholesterolemia, unspecified; E03.9 Hypothyroidism, unspecified; G89.29 Other chronic pain; M54.9 Dorsalgia, unspecified; F17.210 Nicotine dependence, cigarettes, uncomplicated; Z98.890 Other specified postprocedural states; Z20.822 Contact with and (suspected) exposure to COVID-19
CPT/HCPCS: 71045; 82962; 87804; 99284

== ENCOUNTER 2023-08-26 06:39 | Inpatient (IN) | payer OTHER ==
[~2023-08-26] VITALS: Ht 170.2 cm; Wt 86.0 kg
[~2023-08-26 06:39] MED LIST changes: +ATOR20TA PO; +BENZ-227 PO; +CALC-26 PO; +CYCL10TA16 PO; +TERB250T90 PO
[2023-08-26 07:28] LABS: BASOPHILS % (AUTO) 0.6 % (0.0-2.0); EOSINOPHILS % (AUTO) 2.2 % (1.0-6.0); HEMOGLOBIN 13.5 g/dL (12.0-16.0); MEAN CORPUSCULAR HEMOGLOBIN 30.9 pg (26.0-34.0); MEAN CORPUSCULAR HGB CONC 33.7 G/dL (31.0-37.0); MEAN CORPUSCULAR VOLUME 92 fL (80-100); MONOCYTES # (AUTO) 0.6 K/uL (0.1-1.0); MONOCYTES % (AUTO) 6.5 % (2.0-9.0); NEUTROPHILS # (AUTO) 4.8 K/uL (1.8-7.7); NEUTROPHILS % (AUTO) 55.7 % (40.0-70.0); PLATELET COUNT (AUTO) 180 K/uL (150-450); RED BLOOD CELL COUNT(AUTO) 4.37 MIL/uL (4.00-5.20); RED CELL DISTRIBUTION WIDTH 14.4 % (11.5-14.5); WHITE BLOOD COUNT (AUTO) 8.7 K/uL (4.5-11.0)
[2023-08-26 07:38] LABS: ANION GAP 8 mmol/L (8-16); CALCIUM, TOTAL 8.4 mg/dL (8.8-10.5); CARBON DIOXIDE 24 mmol/L (22-29); CHLORIDE 104 mmol/L (98-107); CREATININE 0.84 mg/dL (0.60-1.30); GLOMERULAR FILTR. RATE CALC > 60 mL/min (>60); GLUCOSE,RANDOM 129 mg/dL (70-110); POTASSIUM 3.7 mmol/L (3.5-5.1); SODIUM SERUM 136 mmol/L (136-145); UREA NITROGEN, BLOOD 11 mg/dL (7-18)
[2023-08-26 07:44] LABS: ALANINE AMINOTRANSFERASE 59 U/L (12-78); ALBUMIN 3.6 g/dL (3.4-5.0); ALKALINE PHOSPHATASE 80 U/L (46-116); ASPARTATE AMINOTRANSFERASE 22 U/L (15-37); BILIRUBIN,TOTAL 0.2 mg/dL (0.1-1.0); TOTAL PROTEIN, SERUM 6.5 g/dL (6.4-8.2)
[2023-08-26] MEDS ORDERED: ASPIRIN 325 MG TABLET PO ONE (07:45)
[2023-08-26] MEDS ORDERED: NITROGLYCERIN 0.4 MG SUBLINGUAL TABLET #25 SL ONE (07:45)
[2023-08-26 07:49] LABS: TROPONIN I-HIGH SENSITIVITY 5 ng/L (<51)
[2023-08-26 11:10] LABS: TROPONIN I-HIGH SENSITIVITY 4 ng/L (<51)
[2023-08-26 13:16] LABS: COVID AG,FIA SOURCE NASAL SWAB
[2023-08-26 13:19] LABS: SARS-COV2 (COVID) ANTIGEN,FIA Negative (Negative)
[2023-08-26] MEDS ORDERED: ONDANSETRON HCL 4 MG/2 ML VIAL IVP PRN (15:15)
[2023-08-26] MEDS ORDERED: ACETAMINOPHEN 325 MG TABLET PO PRN (15:15)
[2023-08-26] MEDS ORDERED: BISACODYL 10 MG RECTAL RECTAL SUPPOSITORY PR PRN (15:15)
[2023-08-26] MEDS ORDERED: MAGNESIUM HYDROXIDE SUSPENSION 30 ML UDCUP PO PRN (15:15)
[2023-08-26] MEDS ORDERED: HYDROCODONE/ACETAMINOPHEN 5-325 MG TABLET PO PRN (15:15)
[2023-08-26] MEDS ORDERED: MORPHINE SULFATE 2 MG/ML SYRINGE IVP PRN (15:15)
[2023-08-26] MEDS ORDERED: ZOLPIDEM TARTRATE 5 MG TABLET PO PRN (15:15)
[2023-08-26] MEDS ORDERED: NITROGLYCERIN 0.4 MG SUBLINGUAL TABLET #25 SL PRN (15:15)
[2023-08-26 18:26] VITALS: BP 119/73; PULSE 69; RESP 18; TEMP 98
[2023-08-26] MEDS ORDERED: INFLUENZA VIRUS VACCINE QVS 2023-24 (6MO+)/PF 60 MCG/0.5 ML SYRINGE IM. ONE (18:30)
[2023-08-26] MEDS: HEPARIN SODIUM,PORCINE 5,000 UNITS/ML VIAL SQ SCH (18:34)
[2023-08-26 20:00] VITALS: BP 118/77; PULSE 69; RESP 20; TEMP 98.5
[2023-08-26] MEDS: DOCUSATE SODIUM 100 MG CAPSULE PO SCH (20:54)
[2023-08-26] MEDS ORDERED: ATORVASTATIN CALCIUM 20 MG TABLET PO SCH (21:00)
[2023-08-27] VITALS (7 sets, daily range): BP systolic 106–132; BP diastolic 64–82; PULSE 62–83; RESP 16–20; TEMP 97.2–98.3; O2SAT 100
[2023-08-27] MEDS ORDERED: LEVOTHYROXINE SODIUM 100 MCG TABLET PO SCH (06:30)
[2023-08-27 06:41] LABS: BASOPHILS % (AUTO) 0.5 % (0.0-2.0); EOSINOPHILS % (AUTO) 2.2 % (1.0-6.0); HEMATOCRIT 41.2 % (36-46); LYMPHOCYTES # (AUTO) 3.2 K/uL (1.0-4.8); LYMPHOCYTES % (AUTO) 37.7 % (22.0-44.0); MEAN CORPUSCULAR HEMOGLOBIN 31.1 pg (26.0-34.0); MEAN CORPUSCULAR VOLUME 92 fL (80-100); MONOCYTES # (AUTO) 0.5 K/uL (0.1-1.0); MONOCYTES % (AUTO) 5.8 % (2.0-9.0); NEUTROPHILS # (AUTO) 4.5 K/uL (1.8-7.7); NEUTROPHILS % (AUTO) 53.8 % (40.0-70.0); PLATELET COUNT (AUTO) 179 K/uL (150-450); RED CELL DISTRIBUTION WIDTH 14.6 % (11.5-14.5); WHITE BLOOD COUNT (AUTO) 8.4 K/uL (4.5-11.0)
[2023-08-27 07:13] LABS: ANION GAP 11 mmol/L (8-16); CALCIUM, TOTAL 8.1 mg/dL (8.8-10.5); CARBON DIOXIDE 24 mmol/L (22-29); CHLORIDE 103 mmol/L (98-107); CHOL/HDL RATIO 5.1 (3.9-5.7); CHOLESTEROL 169 mg/dL (131-200); CREATININE 0.82 mg/dL (0.60-1.30); GLOMERULAR FILTR. RATE CALC > 60 mL/min (>60); GLUCOSE,RANDOM 111 mg/dL (70-110); HDL CHOLESTEROL 33 mg/dL (40-60); LDL CHOL (CALC.) 98 mg/dL (0-130); SODIUM SERUM 138 mmol/L (136-145); TRIGLYCERIDES 188 mg/dL (15-150); UREA NITROGEN, BLOOD 10 mg/dL (7-18)
[2023-08-27 07:17] LABS: TROPONIN I-HIGH SENSITIVITY 4 ng/L (<51)
[2023-08-27 07:42] LABS: HEMOGLOBIN A1C 6.2 % (3.8-5.6)
[2023-08-27] MEDS: HEPARIN SODIUM,PORCINE 5,000 UNITS/ML VIAL SQ SCH ×3 (08:00→15:40)
[2023-08-27] MEDS: DOCUSATE SODIUM 100 MG CAPSULE PO SCH (08:46)
[2023-08-27] MEDS ORDERED: ATORVASTATIN CALCIUM 20 MG TABLET PO SCH (09:00)
[2023-08-27] MEDS ORDERED: PANTOPRAZOLE SODIUM 40 MG DR TABLET PO SCH (09:00)
[2023-08-27] MEDS ORDERED: METOPROLOL SUCCINATE 25 MG ER TABLET PO SCH (09:00)
[2023-08-27] MEDS ORDERED: ASPIRIN 81 MG CHEWABLE TABLET PO SCH (09:00)
[2023-08-27] MEDS ORDERED: REGADENOSON 0.4 MG/5 ML PF SYRINGE IVP ONE (10:30)
[2023-08-27] MEDS ORDERED: AMINOPHYLLINE 25 MG/ML 10 ML VIAL IVP PRN (10:30)
[2023-08-27] MEDS ORDERED: SESTAMIBI TC99M/UD ISOTOPE 1 EA INJ INJ ONE ×2 (11:10→13:10)
[2023-08-27 16:55] LABS: THYROID STIMULATING HORMONE 3.67 uIU/mL (0.36-3.74)
== END 2023-08-27 17:10 | disposition home or self-care (01) | DRG 203 ==
LOC: EMS 06:39 → 5S 13:20
PROVIDERS: ADMIT Internal Medicine; ATTEND Internal Medicine
DX: R07.9 Chest pain, unspecified (principal); E11.9 Type 2 diabetes mellitus without complications; E78.00 Pure hypercholesterolemia, unspecified; I10 Essential (primary) hypertension; Z20.822 Contact with and (suspected) exposure to COVID-19; F41.9 Anxiety disorder, unspecified; K21.9 Gastro-esophageal reflux disease without esophagitis; G89.29 Other chronic pain; E89.0 Postprocedural hypothyroidism; F17.210 Nicotine dependence, cigarettes, uncomplicated
CPT/HCPCS: 71045; 78452; 80048; 80053; 80061; 83036; 84443; 84484; 85025; 93005; 93306; 99285; A9500; J1644; 36415-L1; 36415-TC

== ENCOUNTER 2023-09-14 09:21 | Emergency (ER) | payer OTHER ==
[~2023-09-14] VITALS: Ht 170.2 cm; Wt 81.0 kg
[~2023-09-14 09:21] MED LIST changes: -AMOX1TAB16 PO; -BENZ-227 PO; -CALC-26 PO; -CYCL10TA16 PO; -METF-1211 PO; -TERB250T90 PO
[2023-09-14 09:23] VITALS: TEMP 98.3
[2023-09-14 11:54] VITALS: BP 128/39; PULSE 71; RESP 18
== END 2023-09-14 11:57 | disposition home or self-care (01) ==
LOC: EMS 09:23
DX: S90.121A Contusion of right lesser toe(s) without damage to nail, initial encounter (principal); F41.9 Anxiety disorder, unspecified; E11.9 Type 2 diabetes mellitus without complications; E78.00 Pure hypercholesterolemia, unspecified; E03.9 Hypothyroidism, unspecified; G89.29 Other chronic pain; M54.9 Dorsalgia, unspecified; F17.210 Nicotine dependence, cigarettes, uncomplicated; Z98.890 Other specified postprocedural states; X58.XXXA Exposure to other specified factors, initial encounter; Y93.01 Activity, walking, marching and hiking; Y92.89 Other specified places as the place of occurrence of the external cause; Y99.8 Other external cause status
CPT/HCPCS: 99283

== ENCOUNTER 2024-04-09 10:24 | Emergency (ER) | payer OTHER ==
[~2024-04-09] VITALS: Ht 172.7 cm; Wt 81.8 kg
[2024-04-09 10:32] VITALS: BP 106/77; PULSE 86; RESP 18; TEMP 98
[2024-04-09] MEDS ORDERED: METF-1211 PO (10:36)
[2024-04-09] MEDS: SODIUM CHLORIDE 0.9% 1,000 ML IV ONE (11:05)
[2024-04-09 11:10] LABS: BASOPHILS % (AUTO) 0.4 % (0.0-2.0); EOSINOPHILS % (AUTO) 0.6 % (1.0-6.0); HEMATOCRIT 43.8 % (36-46); HEMOGLOBIN 14.6 g/dL (12.0-16.0); LYMPHOCYTES # (AUTO) 2.6 K/uL (1.0-4.8); LYMPHOCYTES % (AUTO) 21.6 % (22.0-44.0); MEAN CORPUSCULAR HEMOGLOBIN 30.5 pg (26.0-34.0); MEAN CORPUSCULAR HGB CONC 33.4 G/dL (31.0-37.0); MEAN CORPUSCULAR VOLUME 91 fL (80-100); MONOCYTES # (AUTO) 0.4 K/uL (0.1-1.0); MONOCYTES % (AUTO) 3.5 % (2.0-9.0); NEUTROPHILS # (AUTO) 8.8 K/uL (1.8-7.7); NEUTROPHILS % (AUTO) 73.9 % (40.0-70.0); PLATELET COUNT (AUTO) 171 K/uL (150-450); RED CELL DISTRIBUTION WIDTH 13.7 % (11.5-14.5); WHITE BLOOD COUNT (AUTO) 11.9 K/uL (4.5-11.0)
[2024-04-09 11:14] LABS: ANION GAP 13 mmol/L (8-16); CALCIUM, TOTAL 9.4 mg/dL (8.8-10.5); CARBON DIOXIDE 22 mmol/L (22-29); CHLORIDE 103 mmol/L (98-107); CREATININE 0.96 mg/dL (0.60-1.30); GLOMERULAR FILTR. RATE CALC > 60 mL/min (>60); GLUCOSE,RANDOM 283 mg/dL (70-110); POTASSIUM 4.4 mmol/L (3.5-5.1); SODIUM SERUM 138 mmol/L (136-145); UREA NITROGEN, BLOOD 13 mg/dL (7-18)
[2024-04-09 11:55] LABS: ACETONE,BLOOD NEGATIVE (NEGATIVE)
[2024-04-09 15:46] LABS: GLUCOMETER DEV NAME(LOC) ER.7; GLUCOSE,POINT OF CARE 245 MG/DL (70-110)
== END 2024-04-09 14:11 | disposition home or self-care (01) ==
LOC: EMS 10:24
DX: E11.65 Type 2 diabetes mellitus with hyperglycemia (principal); F41.9 Anxiety disorder, unspecified; E78.00 Pure hypercholesterolemia, unspecified; E03.9 Hypothyroidism, unspecified; G89.29 Other chronic pain; M54.9 Dorsalgia, unspecified; F17.210 Nicotine dependence, cigarettes, uncomplicated; Z98.890 Other specified postprocedural states
CPT/HCPCS: 99283; 96360; 80048; 82009; 82962; 85025; 36415; J7030

== ENCOUNTER 2024-07-11 21:44 | Emergency (ER) | payer OTHER ==
[~2024-07-11] VITALS: Ht 170.2 cm; Wt 82.0 kg
[~2024-07-11 21:44] MED LIST changes: +METF-1211 PO
[2024-07-11 22:54] VITALS: BP 132/85; PULSE 90; RESP 18; TEMP 97.3; O2SAT 100
[2024-07-12 00:06] LABS: GLUCOMETER DEV NAME(LOC) ERT.5; GLUCOSE,POINT OF CARE 157 MG/DL (70-110)
[2024-07-12] MEDS: ONDANSETRON HCL 4 MG/2 ML VIAL IM ONE (00:07)
[2024-07-12] MEDS: HYDROmorphone HCL 2 MG/ML SYRINGE IM ONE (00:08)
[2024-07-12] MEDS: KETOROLAC TROMETHAMINE 60 MG/2 ML VIAL IM ONE (00:09)
[2024-07-12 00:21] LABS: BASOPHILS % (AUTO) 0.7 % (0.0-2.0); EOSINOPHILS % (AUTO) 2.2 % (1.0-6.0); HEMATOCRIT 43.5 % (36-46); HEMOGLOBIN 14.5 g/dL (12.0-16.0); LYMPHOCYTES # (AUTO) 3.6 K/uL (1.0-4.8); LYMPHOCYTES % (AUTO) 37.9 % (22.0-44.0); MEAN CORPUSCULAR HEMOGLOBIN 30.5 pg (26.0-34.0); MEAN CORPUSCULAR HGB CONC 33.3 G/dL (31.0-37.0); MEAN CORPUSCULAR VOLUME 92 fL (80-100); MONOCYTES # (AUTO) 0.6 K/uL (0.1-1.0); MONOCYTES % (AUTO) 6.2 % (2.0-9.0); PLATELET COUNT (AUTO) 194 K/uL (150-450); RED BLOOD CELL COUNT(AUTO) 4.75 MIL/uL (4.00-5.20); RED CELL DISTRIBUTION WIDTH 14.1 % (11.5-14.5); WHITE BLOOD COUNT (AUTO) 9.5 K/uL (4.5-11.0)
[2024-07-12 00:31] LABS: ANION GAP 10 mmol/L (8-16); CALCIUM, TOTAL 8.9 mg/dL (8.8-10.5); CARBON DIOXIDE 26 mmol/L (22-29); CHLORIDE 102 mmol/L (98-107); CREATININE 0.88 mg/dL (0.60-1.30); GLOMERULAR FILTR. RATE CALC > 60 mL/min (>60); GLUCOSE,RANDOM 135 mg/dL (70-110); SODIUM SERUM 138 mmol/L (136-145); UREA NITROGEN, BLOOD 12 mg/dL (7-18)
[2024-07-12 00:34] LABS: URIC ACID 5.4 mg/dL (2.6-7.2)
[2024-07-12] MEDS ORDERED: IBUP-1554 PO (01:09)
[2024-07-12] MEDS ORDERED: HYDR-4072 PO (01:09)
[2024-07-12] MEDS: HYDROCODONE/ACETAMINOPHEN 5-325 MG TABLET PO ONE (01:19)
== END 2024-07-12 02:57 | disposition home or self-care (01) ==
LOC: EMS 21:44
DX: S93.601A Unspecified sprain of right foot, initial encounter (principal); F41.9 Anxiety disorder, unspecified; E11.9 Type 2 diabetes mellitus without complications; E78.00 Pure hypercholesterolemia, unspecified; E03.9 Hypothyroidism, unspecified; G89.29 Other chronic pain; M54.50 Low back pain, unspecified; F17.210 Nicotine dependence, cigarettes, uncomplicated; Z98.890 Other specified postprocedural states; X58.XXXA Exposure to other specified factors, initial encounter; Y93.89 Activity, other specified; Y92.89 Other specified places as the place of occurrence of the external cause; Y99.8 Other external cause status
CPT/HCPCS: 99284; 80048; 82962; 84550; 85025; 36415; 73610; 96372; J1170; J1885; J2405

== ENCOUNTER 2024-09-14 10:24 | Emergency (ER) | payer OTHER ==
[~2024-09-14] VITALS: Ht 165.1 cm; Wt 70.5 kg
[~2024-09-14 10:24] MED LIST changes: +HYDR-4072 PO; +IBUP-1554 PO
[2024-09-14 10:35] VITALS: TEMP 98
[2024-09-14] MEDS: LIDOCAINE 5% TRANSDERMAL PATCH TD ONE (12:07)
[2024-09-14] MEDS: KETOROLAC TROMETHAMINE 30 MG/ML VIAL IM ONE (12:07)
[2024-09-14] MEDS ORDERED: IBUP-1492 PO (13:11)
[2024-09-14] MEDS ORDERED: CYCL-448 PO (13:11)
[2024-09-14 13:39] VITALS: BP 152/77; PULSE 89; RESP 18; O2SAT 97
== END 2024-09-14 13:40 | disposition home or self-care (01) ==
LOC: EMS 10:40
DX: M54.50 Low back pain, unspecified (principal); F41.9 Anxiety disorder, unspecified; E11.9 Type 2 diabetes mellitus without complications; E78.00 Pure hypercholesterolemia, unspecified; E03.9 Hypothyroidism, unspecified; G89.29 Other chronic pain; F17.210 Nicotine dependence, cigarettes, uncomplicated; K21.9 Gastro-esophageal reflux disease without esophagitis; Z90.89 Acquired absence of other organs; Z87.440 Personal history of urinary (tract) infections; Z98.890 Other specified postprocedural states; V43.52XA Car driver injured in collision with other type car in traffic accident, initial encounter; Y93.89 Activity, other specified; Y92.89 Other specified places as the place of occurrence of the external cause; Y99.8 Other external cause status
CPT/HCPCS: 99283; 82962; 72100; 96372; J1885

== ENCOUNTER 2024-11-09 22:27 | Emergency (ER) | payer OTHER ==
[~2024-11-09] VITALS: Ht 165.1 cm; Wt 71.0 kg
[~2024-11-09 22:27] MED LIST changes: +CYCL-448 PO; +IBUP-1492 PO
[2024-11-09 22:45] VITALS: TEMP 98.2
[2024-11-09 23:33] LABS: BASOPHILS % (AUTO) 0.4 % (0.0-2.0); EOSINOPHILS % (AUTO) 1.2 % (1.0-6.0); HEMATOCRIT 42.9 % (36-46); HEMOGLOBIN 14.8 g/dL (12.0-16.0); LYMPHOCYTES % (AUTO) 26.5 % (22.0-44.0); MEAN CORPUSCULAR HEMOGLOBIN 31.2 pg (26.0-34.0); MEAN CORPUSCULAR HGB CONC 34.6 G/dL (31.0-37.0); MEAN CORPUSCULAR VOLUME 90 fL (80-100); MONOCYTES # (AUTO) 0.5 K/uL (0.1-1.0); MONOCYTES % (AUTO) 4.8 % (2.0-9.0); NEUTROPHILS # (AUTO) 7.6 K/uL (1.8-7.7); NEUTROPHILS % (AUTO) 67.1 % (40.0-70.0); PLATELET COUNT (AUTO) 216 K/uL (150-450); RED BLOOD CELL COUNT(AUTO) 4.74 MIL/uL (4.00-5.20); RED CELL DISTRIBUTION WIDTH 13.4 % (11.5-14.5); WHITE BLOOD COUNT (AUTO) 11.3 K/uL (4.5-11.0)
[2024-11-09 23:58] LABS: TROPONIN I-HIGH SENSITIVITY 4 ng/L (<51)
[2024-11-10 00:02] LABS: ALANINE AMINOTRANSFERASE 41 U/L (12-78); ALBUMIN 4.5 g/dL (3.4-5.0); ALKALINE PHOSPHATASE 130 U/L (46-116); ANION GAP 15 mmol/L (8-16); ASPARTATE AMINOTRANSFERASE 17 U/L (15-37); BILIRUBIN,TOTAL 0.3 mg/dL (0.1-1.0); CALCIUM, TOTAL 9.6 mg/dL (8.8-10.5); CARBON DIOXIDE 22 mmol/L (22-29); CHLORIDE 93 mmol/L (98-107); CREATININE 1.31 mg/dL (0.60-1.30); GLOMERULAR FILTR. RATE CALC 51 mL/min (>60); SODIUM SERUM 130 mmol/L (136-145); TOTAL PROTEIN, SERUM 8.1 g/dL (6.4-8.2); UREA NITROGEN, BLOOD 15 mg/dL (7-18)
[2024-11-10 00:08] LABS: GLUCOSE,RANDOM 546 mg/dL (70-110)
[2024-11-10 00:10] LABS: B-TYPE NATRIURETIC PEPTIDE < 5 pg/mL (0-100)
[2024-11-10 00:14] LABS: BILIRUBIN,DIRECT < 0.05 mg/dL (0.00-0.20)
[2024-11-10 00:59] LABS: APPEARANCE,URINE CLEAR (CLEAR); BILIRUBIN,URINE NEGATIVE (NEGATIVE); COLOR,URINE COLORLESS (YELLOW); GLUCOSE, URINE (UA) >=1000 mg/dL (NEGATIVE); KETONES,URINE NEGATIVE (NEGATIVE); LEUKOCYTE ESTERASE ,URINE NEGATIVE (NEGATIVE); NITRATE,URINE NEGATIVE (NEGATIVE); OCCULT BLOOD,URINE MODERATE (NEGATIVE); PROTEIN,URINE NEGATIVE (NEGATIVE); SPECIFIC GRAVITIY, URINE 1.034 (1.003-1.030); UROBILINOGEN,URINE <=1.0 mg/dL (<=1.0)
[2024-11-10 01:19] LABS: BACTERIA,URINE None Seen /HPF (None Seen); SQUAMOUS EPITHELIAL CELL,UR Few /LPF (None Seen); WBC,URINE None Seen /HPF (0-5)
[2024-11-10 01:43] VITALS: BP 137/88; PULSE 88; RESP 20; O2SAT 100
[2024-11-10 02:01] LABS: GLUCOMETER DEV NAME(LOC) ER.7; GLUCOSE,POINT OF CARE 386 MG/DL (70-110)
[2024-11-10] MEDS: MetFORMIN HCL 500 MG TABLET PO ONE (03:20)
[2024-11-10] MEDS: SODIUM CHLORIDE 0.9% 1,000 ML IV ONE (03:20)
[2024-11-10] MEDS: INSULIN REGULAR, HUMAN 100 UNITS/ML IVP ONE (03:26)
[2024-11-10] MEDS ORDERED: METF-1211 PO (04:24)
[2024-11-10 04:56] LABS: GLUCOMETER DEV NAME(LOC) ER.7; GLUCOSE,POINT OF CARE 347 MG/DL (70-110)
== END 2024-11-10 04:31 | disposition home or self-care (01) ==
LOC: EMS 22:28
DX: E11.65 Type 2 diabetes mellitus with hyperglycemia (principal); F41.9 Anxiety disorder, unspecified; E03.9 Hypothyroidism, unspecified; F17.210 Nicotine dependence, cigarettes, uncomplicated; E78.00 Pure hypercholesterolemia, unspecified; K21.9 Gastro-esophageal reflux disease without esophagitis; Z90.89 Acquired absence of other organs; Z91.148 Patient's other noncompliance with medication regimen for other reason
CPT/HCPCS: 99284; 80048; 80076; 81001; 82962 ×2; 83880; 84484; 85025; 36415; 93005; 96374; 96361; J1815; J7030

== ENCOUNTER 2025-01-15 07:54 | Emergency (ER) | payer OTHER ==
[~2025-01-15] VITALS: Ht 170.2 cm; Wt 81.4 kg
[2025-01-15 07:58] VITALS: TEMP 98.2
[2025-01-15 08:16] LABS: GLUCOMETER DEV NAME(LOC) ERT.6; GLUCOSE,POINT OF CARE 175 MG/DL (70-110)
[2025-01-15] MEDS: ACETAMINOPHEN 500 MG TABLET PO ONE (09:18)
[2025-01-15] MEDS: KETOROLAC TROMETHAMINE 30 MG/ML VIAL IM ONE (09:18)
[2025-01-15 09:30] VITALS: BP 124/78; PULSE 72; RESP 17; O2SAT 98
== END 2025-01-15 10:02 | disposition home or self-care (01) ==
LOC: EMS 08:05
DX: S63.641A Sprain of metacarpophalangeal joint of right thumb, initial encounter (principal); S53.441A Ulnar collateral ligament sprain of right elbow, initial encounter; F41.9 Anxiety disorder, unspecified; E11.9 Type 2 diabetes mellitus without complications; E03.9 Hypothyroidism, unspecified; E78.00 Pure hypercholesterolemia, unspecified; K21.9 Gastro-esophageal reflux disease without esophagitis; F17.210 Nicotine dependence, cigarettes, uncomplicated; Z87.440 Personal history of urinary (tract) infections; Z90.89 Acquired absence of other organs; Z91.199 Patient's noncompliance with other medical treatment and regimen due to unspecified reason; Y08.89XA Assault by other specified means, initial encounter; Y93.89 Activity, other specified; Y92.89 Other specified places as the place of occurrence of the external cause; Y99.8 Other external cause status
CPT/HCPCS: 99283; 82962; 73140; 29125; 96372; J1885

== ENCOUNTER 2025-08-31 08:07 | Emergency (ER) | payer OTHER ==
[~2025-08-31] VITALS: Ht 170.2 cm; Wt 82.0 kg
[~2025-08-31 08:07] MED LIST changes: -ATOR20TA PO; -CYCL-448 PO; -IBUP-1492 PO
[2025-08-31 08:17] VITALS: BP 138/91; PULSE 90; RESP 18; TEMP 98.4; O2SAT 98
[2025-08-31 08:34] LABS: COVID AG,FIA SOURCE NASAL SWAB
[2025-08-31 09:06] LABS: RAPID GROUP A STREP NEGATIVE (NEGATIVE)
[2025-08-31 09:15] LABS: SARS-COV2 (COVID) ANTIGEN,FIA Negative (Negative)
[2025-08-31 09:16] LABS: INFLUENZA TYPE A NEGATIVE FOR TYPE A (NEGATIVE); INFLUENZA TYPE B NEGATIVE FOR TYPE B (NEGATIVE)
[2025-08-31] MEDS: OXYMETAZOLINE HCL 0.05% 15 ML NASAL SPRAY NASAL ONE (10:32)
== END 2025-08-31 10:59 | disposition home or self-care (01) ==
LOC: EMS 08:07
DX: J04.0 Acute laryngitis (principal); H92.01 Otalgia, right ear; E03.9 Hypothyroidism, unspecified; E11.9 Type 2 diabetes mellitus without complications; E78.00 Pure hypercholesterolemia, unspecified; G89.29 Other chronic pain; F17.210 Nicotine dependence, cigarettes, uncomplicated; Z90.89 Acquired absence of other organs; Z86.018 Personal history of other benign neoplasm; Z79.899 Other long term (current) drug therapy; Z20.822 Contact with and (suspected) exposure to COVID-19
CPT/HCPCS: 82962; 87430; 87804; 99283

== ENCOUNTER 2025-10-09 09:20 | Emergency (ER) | payer OTHER ==
[~2025-10-09] VITALS: Ht 170.2 cm; Wt 81.8 kg
[2025-10-09 09:27] VITALS: BP 130/92; PULSE 88; RESP 18; TEMP 98.2; O2SAT 98
[2025-10-09 09:51] LABS: GLUCOMETER DEV NAME(LOC) ERT.7; GLUCOSE,POINT OF CARE 213 MG/DL (70-110)
[2025-10-09] MEDS: DOXYCYCLINE HYCLATE 100 MG TABLET PO ONE (10:55)
[2025-10-09] MEDS ORDERED: DOXY-354 PO (11:03)
== END 2025-10-09 11:17 | disposition home or self-care (01) ==
LOC: EMS 09:20
DX: L03.317 Cellulitis of buttock (principal); L02.31 Cutaneous abscess of buttock; F41.9 Anxiety disorder, unspecified; E11.9 Type 2 diabetes mellitus without complications; E78.00 Pure hypercholesterolemia, unspecified; E03.9 Hypothyroidism, unspecified; G89.29 Other chronic pain; I10 Essential (primary) hypertension; F17.210 Nicotine dependence, cigarettes, uncomplicated; Z90.89 Acquired absence of other organs
CPT/HCPCS: 82962; 99283